=== PATIENT | male | born 1980 | race Two or more races ===

== ENCOUNTER 2017-01-11 14:10 | Emergency (ER) | payer SELFPAY ==
[~2017-01-11] VITALS: Ht 167.6 cm; Wt 104.3 kg
[2017-01-11 17:01] LABS: Urine Bilirubin Negative (Negative); Urine Glucose TRACE mg/dL (Normal); Urine Ketone Negative (Negative); Urine Mucus FEW (None Seen); Urine Nitrite Negative (Negative); Urine RBC 143 /hpf (0 - 3); Urine Squamous Epithelial Cell FEW /hpf (<5); Urine Urobilinogen Normal (Negative); Urine pH 5.5 (5.0-8.0)
[2017-01-11 17:11] LABS: Urine Blood 3+ /uL (Negative); Urine Color Amber (Yellow)
[2017-01-11 18:26] VITALS: BP 116/63
== END 2017-01-11 20:10 | disposition home or self-care (01) ==
LOC: ER 14:18
DX: N20.1 Calculus of ureter (principal)
CPT/HCPCS: 74176; 81001